=== PATIENT | female | born 1955 | race African-American/Black ===

== ENCOUNTER 2016-03-16 18:51 | Emergency (ER) | payer OTHER ==
[~2016-03-16] VITALS: Ht 172.7 cm; Wt 61.2 kg
[2016-03-16] MEDS ORDERED: NKM (19:12)
[2016-03-16] MEDS ORDERED: IBUPROFEN600 MG ORAL (20:39)
[2016-03-16 20:50] VITALS: BP 133/77
--- NOTE | 2016-03-17 10:14 | Diagnostic Imaging Report ---
Indications: Right ankle pain Technique: 3 views right ankle. Findings: Comparison: None No fracture, dislocation, joint space widening , lytic destruction, periosteal reaction , surrounding soft tissue swelling/foreign body/other abnormality, or other acute changes are identified. IMPRESSION: No evidence of acute abnormality the right ankle.
--- NOTE | 2016-03-18 14:44 | Emergency Room Report ---
History of Present Illness General Chief Complaint: Lower Extremity Injury Source: Patient Present Illness HPI 60-year-old female presents ED complaining of right ankle pain status post trip. States she had a mechanical trip and fall while at work today. Patient is a [employer] worker. Denies hitting her head or LOC. Pain is 10 out of 10, throbbing, localized across the ankle, nonradiating. Worse with walking. No other aggravating or relieving factors. Denies any other injuries. Denies any other associated symptom Allergies: Coded Allergies: No Known Allergies (Unverified , 03/16/16) Patient History Past Medical History: none Past Surgical History: none Pertinent Family History: none Social History: Denies: alcohol use, drug use, smoking Now: No Immunizations: UTD Reviewed Nursing Documentation: PMH: Agreed, PSxH: Agreed Nursing Documentation-PMH Past Medical History: No Stated History Review of Systems All Other Systems: negative except mentioned in HPI Physical Exam Vital Signs Date Time Temp Pulse Resp B/P Pulse Ox O2 Delivery O2 Flow Rate FiO2 03/16/16 19:08 99.7 76 16 133/77 97 Room Air Sp02 EP Interpretation: reviewed, normal General Appearance: no apparent distress, alert, GCS 15, non-toxic Head: normocephalic Eyes: bilateral eye PERRL, bilateral eye normal inspection ENT: normal ENT inspection Neck: normal inspection Respiratory: normal inspection Cardiovascular #1: normal inspection Gastrointestinal: normal inspection Rectal: deferred Genitourinary: no CVA tenderness Musculoskeletal: tender - R ankle Neurologic: alert, oriented x3, responsive, motor strength/tone normal, sensory intact, speech normal Psychiatric: normal inspection Skin: normal inspection Lymphatic: normal inspection Procedures Splinting Splinting : Consent: Emergent Pre-Made Type: ISIAH wrap - R ankle Pre-Proc Neuro Vasc Exam: normal Post-Proc Neuro Vasc Exam: normal Patient Tolerated: Well Complications: None Medical Decision Making Diagnostic Impression: Primary Impression: Ankle sprain Qualified Codes: S93.401A - Sprain of unspecified ligament of right ankle, initial encounter ER Course Hospital Course 60-year-old F presents to ED complaining of R ankle pain s/p trip and fall Differential diagnoses include: Fracture, dislocation, sprain, contusion Clinical course Patient placed on stretcher. After initial history and physical, I ordered pain medications and Xrays of R foot/ankle Xrays prelim read shows no acute fracture/dislocation. placed in isiah wrap, given crutches Diagnosis - ankle sprain Stable and discharged to home with prescription for Motrin. apply ice, keep elevated. weight bear as tolerated. Followup with PMD. Return to ED if symptoms recur or worsen Other X-Ray Diagnostic Results Other X-Ray Diagnostic Results : X-Ray Ordered: R ankle EP Interpretation: Yes Findings: no fractures, no dislocation, no soft tissue swelling Number of Views: 3 Last Vital Signs Date Time Temp Pulse Resp B/P Pulse Ox O2 Delivery O2 Flow Rate FiO2 03/16/16 20:50 99.7 16 133/77 97 Room Air 03/16/16 19:08 76 Status: improved Disposition: HOME, SELF-CARE Condition: Stable Scripts Ibuprofen* (MOTRIN*) 600 Mg Tablet 600 MG ORAL Q8H Y for For Pain, #30 TAB 0 Refills Prov: VIVI GIPSON M.D. 03/16/16 Referrals: [facility] (PCP) Departure Forms: Return to Work Return to Work Date: Mar 18, 2016 Work Restrictions: Desk Work Only Patient Instructions: Ankle Sprain VIVI GIPSON M.D. Mar 18, 2016 14:44
--- NOTE | 2016-03-31 10:11 | Diagnostic Imaging Report ---
Indications: Right foot pain Technique: 3 views right foot. Findings: Comparison: None No fracture, dislocation, joint space widening , lytic destruction, periosteal reaction , surrounding soft tissue swelling/foreign body/other abnormality, or other acute changes are identified. First digital ray demonstrates hallux valgus and metatarsus adductus. Fifth digital ray demonstrates digitum varum and metatarsus abductus. Soft tissues over the first and fifth metatarsophalangeal joints are focally prominent. IMPRESSION: No evidence of acute abnormality Alignment abnormalities of the first and fifth digital rays with bunion formations
== END 2016-03-16 20:53 | disposition home or self-care (01) ==
LOC: EMR 20:50
DX: S93.401A Sprain of unspecified ligament of right ankle, initial encounter (principal); W01.0XXA Fall on same level from slipping, tripping and stumbling without subsequent striking against object, initial encounter; Y92.89 Other specified places as the place of occurrence of the external cause; Y99.0 Civilian activity done for income or pay
CPT/HCPCS: 99283